=== PATIENT | male | born 1960 | race Caucasian/White ===

== ENCOUNTER → 2023-02-28 11:33 | Outpatient (BNVA) | payer BC, SELFPAY | PROVIDERS: Visit Provider Nurse Practitioner | DX: M16.11 Unilateral primary osteoarthritis, right hip (principal); M25.551 Pain in right hip | CPT/HCPCS: 73502 ==

== ENCOUNTER 2023-05-18 11:45 | Outpatient (CLI) | payer BC, MEDICAID, SELFPAY ==
--- NOTE | 2023-05-18 12:00 | CT_ITS ---
WS: [id number] CT RIGHT HIP NONCONTRAST DEJAN TECHNIQUE: Noncontrast CT of the RIGHT hip to include the RIGHT knee CLINICAL INFORMATION: RIGHT TOTAL HIP ARTHROPLASTY COMPARISON: None. DLP: 899.[address] scans at [facility] use at least one of these dose optimization techniques: automated e xposure control; mA and/or kV adjustment per patient size (includes targeted exams where dose is matc hed to clinical indication); or iterative reconstruction. FINDINGS: Advanced degenerative arthritis RIGHT hip with loss of the joint space and uqqc-[id number] articulation. Hypertrophic changes along the joint line. Subchondral sclerosis in the femoral head and acetabulum. Normal pubic rami. Moderate degenerative narrowing LEFT hip. Moderate facet arthropathy lower lumbar spine. Ankylosis RIGHT sacroiliac joint. Tiny fat-containing umbilical hernia. IMPRESSION: Images obtained for preoperative purposes.
== END 2023-05-18 11:46 | disposition home or self-care (01) ==
LOC: RAD 11:46
PROVIDERS: PCP Nurse Practitioner; Visit Provider Student in an Organized Health Care Education/Training Program
DX: Z01.812 Encounter for preprocedural laboratory examination (principal); Z01.818 Encounter for other preprocedural examination; M25.551 Pain in right hip; Z96.641 Presence of right artificial hip joint
CPT/HCPCS: 73700; 80053; 81003; 85025

== ENCOUNTER → 2023-05-25 10:18 | Outpatient (BNVA) | payer BC, MEDICAID, SELFPAY | PROVIDERS: PCP Nurse Practitioner; Visit Provider Family Medicine | DX: Z01.818 Encounter for other preprocedural examination (principal) | CPT/HCPCS: 81003; 87086 ==

== ENCOUNTER 2023-05-28 15:29 | Observation (INO) | payer BC, MEDICAID, SELFPAY ==
[2023-05-28] VITALS (16 sets, daily range): BP systolic 95–133; BP diastolic 61–81; PULSE 62–76; RESP 14–18; TEMP 36.2–37; O2SAT 93–98; BMI 38.3; BMI 38.6
[2023-05-28] MEDS: lactated ringers 500 ML IV (09:22)
[2023-05-28] MEDS: acetaminophen 1,000 MG/100 ML PIGGYBACK 400 MG IV ×2 (09:27→16:41)
--- NOTE | 2023-05-28 09:27 | PC.NURSE ---
gudino cath inserted and specimen obtained and sent to lab at 0918
[2023-05-28] MEDS: ketorolac 30 mg/mL INJ IVP (09:32)
[2023-05-28] MEDS: scopolamine 1.5 Patch 1 PATCH TRANSDERMA (09:33)
[2023-05-28 09:38] LABS: Add Urine Microscopic? NO; Charge for UA Resulting for Rev
[2023-05-28 09:39] LABS: Basophils % 0.6 %; Eosinophils # 0.2 10^3/uL (0.0-0.8); Eosinophils % 3.8 %; Hematocrit 44.8 % (37-53); Lymphocytes # 2.4 10^3/uL (0.8-4.8); Lymphocytes % 37.8 %; Mean Corpuscular HGB Conc 32.6 g/dL (30-55); Mean Corpuscular Hemoglobin 29.4 pg (27-33); Mean Corpuscular Volume 90.1 fl (82-101); Mean Platelet Volume 11.4 fL (7.4-10.4); Monocytes # 0.7 10^3/uL (0.2-0.9); Monocytes % 10.8 %; Neutrophils # 2.99 10^3/uL (1.8-7.7); Neutrophils % 46.8 %; Nucleated Red Blood Cells % 0 %; Platelet Count 188 10^3/cmm (157-399); Red Blood Count 4.97 10^6/uL (3.85-5.65); Red Cell Distribution Width 13.3 % (12.1-15.1); White Blood Count 6.38 10^3/uL (3.29-11.43)
[2023-05-28 09:51] LABS: Bilirubin Urine Neg (Negative); Blood Urine Neg (Negative); Glucose Urine UA Norm (Normal); Ketones Urine Negative (Negative); Leukocyte Esterase Urine Negative (Negative); Nitrate Urine Negative (Negative); Protein Urine Neg (Negative); Sulfosalicylic Acid Urine Negative (Negative); Urine Appearance Clear (CLEAR); Urine Color Yellow (Yellow); Urobilinogen Urine Neg (Negative); pH Urine 5 (5-7)
[2023-05-28 10:04] LABS: Anion Gap 17.4 (5-19); Blood Urea Nitrogen 17 mg/dL (8-23); Carbon Dioxide 24 mmol/L (22-29); Chloride 106 mmol/L (98-107); Creatinine Clr Calc Pharmacy 145.2538; Glomerular Filtration Rate 113.9 mL/min (90-130); Glucose 116 mg/dL (65-115); Osmolality Calculated 299 mOsm/kg (285-295); Potassium 4.4 mmol/L (3.5-5.1); Sodium 143 mmol/L (136-145)
--- NOTE | 2023-05-28 10:29 | ANES.PREANE2 ---
Pre-Anesthetic Assessment Height/Weight: Height 1.8 m Weight 124.738 kg Temp Pulse Resp BP Pulse Ox O2 Del Method 97.2 F L 68 18 133/81 97 Room Air 05/28/23 08:51 05/28/23 08:51 05/28/23 08:51 05/28/23 09:33 05/28/23 08:51 05/28/23 09:28 Operation Date: 05/28/23 10:20 Proposed Procedures p Right Jay Robot Total Hip Arthroplasty(Right) - Lamonte Dunn, DO Was Beta Maria Fernanda taken within 24 hours: N/A Was Clonidine taken within 24 hours: N/A Last intake: Intake Last Liquid Date 05/27/23 Last Liquid Time 21:30 Last Solid Date 05/27/23 Last Solid Time 20:30 Social No alcohol and No tobacco Quite/sober years ago Exam alert and oriented x 3 Airway Submandibular: within normal limits Cervical ROM: within normal limits Mallampati: Class II Dentition: chipped and loose History/ROS No significant history except as noted and No significant complaints Metabolic Morbid Obesity Anesthetic Plan ASA status: 2 Anesthesia: General and Regional (specify below) Other: Spinal + MAC; GETA backup Risk of > 500 ml blood loss (7ml/kg in children): Yes, adequate IV access and fluids planned Medications/Allergies Home Medications Medication Instructions Recorded Confirmed Last Taken Type ascorbic acid (vitamin C) 1,000 mg 1 g PO DAILY 05/15/23 05/25/23 05/27/23 History capsule onjjvpa-makmtofmq-uxulhb-zinc 1 tab PO DAILY 05/15/23 05/25/23 05/27/23 History tablet potassium gluconate 600 mg (99 mg) 600 mg PO DAILY 05/15/23 05/25/23 05/27/23 History tablet sulfamethoxazole 800 1 tab PO BID 5 days #10 tabs 05/21/23 05/25/23 05/26/23 Rx mg-trimethoprim 160 mg tablet (Bactrim DS) Allergies Allergy/AdvReac Type Severity Reaction Status Date / Time No Known Allergies Allergy Verified 05/25/23 09:13 [facility] Anesthesia Social History Smoking and tobacco/nicotine status: former use of tobacco/nicotine Alcohol intake: never Data Anesthesia 05/28/23 09:21 05/28/23 09:21 Short CBC 05/28/23 Range/Units 09:21 WBC 6.38 (3.29-11.43) 10^3/uL Hgb 14.60 (11.27-16.99) g/dL Hct 44.8 (37-53) % MCV 90.1 (82-101) fl Plt Count 188 (157-399) 10^3/cmm Neut % (Auto) 46.8 % Neut # (Auto) 2.99 (1.8-7.7) 10^3/uL BMP 05/28/23 09:21 Sodium 143 Potassium 4.4 Chloride 106 Carbon Dioxide 24 BUN 17 Creatinine 0.7 Glucose 116 H Calcium 9.0 Urine 05/28/23 Range/Units 09:15 Urine Color Yellow (Yellow) Urine Appearance Clear (CLEAR) Urine pH 5 (5-7) Ur Specific [place] 1.020 (1.005-1.030) Urine Protein Neg (Negative) Urine Glucose (UA) Norm (Normal) Urine Ketones Negative (Negative) Urine Nitrate Negative (Negative) Urine Bilirubin Neg (Negative) Ur Leukocyte Esterase Negative (Negative) Cardiac Studies: No Data to Display
[2023-05-28] MEDS: sodium chloride 0.9% 1,000 ML 30 ML IV (10:30)
--- NOTE | 2023-05-28 11:18 | W.PM.OPSUD ---
Surgery/Procedure H&P Update DATE OF PROCEDURE: May 28, 2023 DATE H&P PERFORMED: 05/15/23 H&P UPDATE INFORMATION: I have reviewed H&P completed within last 30 days, I have examined patient prior to procedure and No changes to prior documentation CHANGES TO PREVIOUS DOCUMENTATION: UA checked this morning and clear. Received clearance note by dentist he is doing well no issues at this time. Ready to proceed with right total hip arthroplasty Jay robotic assisted posterior approach. PREOP DIAGNOSIS: Right hip DJD PRIMARY INDICATION FOR PROCEDURE: Right hip degenerative joint disease PLANNED PROCEDURE: Operation Date: 05/28/23 10:20 Proposed Procedures p Right Jay Robot Total Hip Arthroplasty(Right) - Lamonte Dunn DO
[2023-05-28] MEDS: ceFAZolin 2,000 MG in sodium chloride 0.9% (plus) 50 ML 100 MG IV ×2 (11:33→20:36)
[2023-05-28] MEDS: ceFAZolin 1,000 MG in sodium chloride 0.9% (plus) 50 ML 100 MG IV (12:05)
[2023-05-28] MEDS: tranexamic acid 1,000 mg/10mL SDV 1000 MG IV (12:10)
[2023-05-28] MEDS: vancomycin 1,000 MG SDV 2000 MG XX (14:03)
--- NOTE | 2023-05-28 14:53 | XRR_ITS ---
PROCEDURE INFORMATION: Exam: XR Right Hip Exam date and time: 05/28/2023 3:05 PM Age: 62 years old Clinical indication: Device placement; Other: Joe; Prior surgery; Surgery date: Post-operative (0-2 days); Additional info: Post op joe, do in pacu TECHNIQUE: Imaging protocol: Radiologic exam of the right hip. Views: 1 view hip with pelvis when performed. COMPARISON: CT hip RT [facility] [id number] 05/18/2023 12:00 PM FINDINGS: Bones/joints: Total hip replacement. Anatomic alignment. Bone and metal are intact. There is a small amount of periarticular gas. No acute fracture. Soft tissues: Unremarkable. XR/XR hip RT 2-3V wo/w pel* [id number] IMPRESSION: Normal following replacement.
--- NOTE | 2023-05-28 14:54 | PM.OP ---
Operative Report Date of procedure: May 28, 2023 Surgeon: Lamonte Dunn DO Cast Iron Dipper: John Dunn PA-C: PA was necessary for assistance in this case with leg positioning, reduction , retraction and protection of neurovascular structures as well as assistance in implantation wound closure and dressing application. Procedure: Preop Diagnosis Right hip degenerative joint disease Post-op diagnosis: Right hip degenerative joint disease Procedure done: Right total hip arthroplasty?robotic assisted Jay posterior approach Implants: Chayo total hip arthroplasty implants 56 mm cluster hole acetabular shell 6.5 mm x (25mm) acetabular screw Alpha code F MDM cementless metal liner Femoral stem size #7 132 degree neck angle Alpha code MDM +8 mm head Surgeon: Lamonte Dunn DO Estimated blood loss: 200 mL IV fluids: 1200 mL Urine output: 450 mL Complications: None Condition: stable Disposition: floor Brief History: Patient's been seen and worked up by myself in the outpatient setting and findings consistent with Right hip degenerative joint disease. He has failed conservative treatment this is causing him severe pain and inability to perform his job from a daily aspect. We talked about his treatment options as far as nonoperative and operative intervention. he ultimately through shared decision-making would like to proceed with a Right total hip arthroplasty. we detailed out his risk benefits complications alternatives to surgical and nonsurgical treatment options. Understanding his risk for surgery he elects to proceed with Right total hip arthroplasty robotic assisted Jay utilizing a posterior approach. All questions answered. He elects proceed with surgery today. Procedure: Patient was seen evaluate in preoperative holding area.? Consent was reviewed and signed with patient.? Correct extremity was then marked.? Patient seen evaluate by anesthesia department once cleared for surgery pt was taken back to the operative suite.? Patient underwent spinal anesthesia per the anesthesia department.? This point time pt was then placed on the operative suite and table.? Pt was then placed in lateral decubitus patient worked with the Right hip up.? Patient was secured in the lateral decubitus position with pegboard. All bony prominences well-padded he was properly secured to the bed.? At this point time the Right lower extremity was then prepped and draped in standard orthopedic fashion with care not to drape out the iliac wing for pelvic array placement.? Final timeout performed.? Patient received appropriate preoperative antibiotics. Started off with establishment of my pelvic array pins.? A small longitudinal incision was made directly over the iliac wing.? Sharp scalpel excision through skin and subcutaneous tissue directly onto bone.? Next I then loaded my pelvic pin.? This was then drilled through the iliac wing corridor with excellent fixation.? Next I then loaded the guide which was placed directly onto bone and then subsequently placed 2 more pins to secure fixation.? Next the pelvic array was then sent had excellent visualization with the Jay robot and was secured. EKG pad was placed on the distal lateral aspect of the femur and sterile aseptic technique and use as my distal reference point. Next I proceeded with my standard posterior approach.? Sharp scalpel through skin and subcutaneous tissue this was centered over the greater trochanter.? I then utilized a Bullard elevator over the gluteus tony fascia.? Next the fascia was then split longitudinally with bipolar electrocautery.? Next a Charnley retractor was then placed.? All bone was then placed into the abductors.? A standard full-thickness release of the piriformis and the short external rotators along with the capsule to grade 1 full thick sleeve for later repair was then placed straight down to the lesser trochanter.? Lesser trochanter was then subsequently identified.? Prior to dislocating the hip we then placed our greater trochanter femur checkpoint.? We marked our appropriate checkpoint for referencing on pelvic array.? At this point in time we then established both of our checkpoints as well as referencing for leg lengths I utilized the EKG pad as my distal reference point. The legs were marked and traced to have appropriate position on the drapes to allow for accurate reading.? Preoperative leg lengths set. Once this was then established I then proceeded with dislocation of the femoral head.? At this point Hohmann's were then placed superiorly and inferiorly along the femoral neck..? The sciatic nerve was protected throughout this case.? At this point time I then utilized the Jay robot and referencing point to reference different aspects along the femoral head and neck for my appropriate neck length.? These were referenced on the inferior mid substance as well as up into the superior shoulder of the femoral neck.? This marked my oscillating saw was used to make my femoral neck cut.? Femoral head was then removed. Next the leg was placed in appropriate position and my anterior and posterior acetabular retractors then placed.? Next I excised the labrum and then remove the pulvinar.? I did do a small release of the inferior capsule which was severely taut to allow for easier placement of my reamers as well as reduction.? Acetabulum was thoroughly irrigated. At this point in time keeping my retractors in place I subsequently loaded up the Dataupia robot for my acetabular reaming.?? Next I then set my 56 reamer under the Dataupia robot and subsequently held this with appropriate preplanned preop planned version of 40 degrees of abduction angle as well as 20 degrees of anteversion.? This preoperative plan was then subsequently made to accommodate for ranges of motion of impingement that was assessed preoperatively utilizing the Dataupia robotic software technology. The small adjustments of abduction and anteversion accommodated no anterior hip impingement with the hip flexed at 90 degrees. I then subsequently reamed this to the appropriate depth with 56mm reamer.? We opened up the acetabular shell clusterhole of the 56 mm Chayo this was then loaded onto my impacting system and then I subsequently impacted this to appropriate depth.? This was then removed from the robot and I used the Jay probe at the center to confirm on the CT scan that this was down on bone which it was.? Next I then drilled and placed 1 acetabular screws with excellent fixation these were drilled and measured to be 25mm this was in the posterior superior aspect of the acetabulum had excellent bite and fixation.? The cup was solid and had excellent press-fit fixation. next, opened the alpha code F MDM cementless liner then subsequently placed in appropriate position and impacted into place.? I then placed a sponge into the acetabulum to protect the polyethylene while my femur preparation was performed.? At this point time I then utilized a small rongeur to clear off the shoulder of the femoral neck to clear out the soft tissue envelope for my box osteotome.? Next box osteotome was used a canal finder was placed as well as a lateral lysing rattail rasp.? Once I was appropriately lateralized I then sequentially broached up to a size 7 femoral stem.? This was impacted to appropriate depth and flushed with my femoral neck cut.? This point I loaded a standard size neck and subsequently reduced the hip.? At this point in time the hip was taken through range of motion before evaluating with the robot on leg lengths.? Patient appeared to have room to increase on leg lengths clinically.? The hip was taken through range of motion and had excellent stability with hip flexion and internal rotation with no evidence of instability had an slightly increased shuck.? This point time utilized the Jay probe from our femur checkpoint down to her distal checkpoint. Satisfied with this trial implants, at this point I dislocated the hip and then called for my final implants with excellent stability in all planes.? Opened up a size 7 femoral Accolade II stem.? My trials were then removed and then subsequently impacted my Accolade II stem to the same level.? This point in time I trialed up to a +8 mm neck length which helped match with Jay robotic assistance had appropriate leg lengths comparative to the contralateral hip and this was confirmed clinically as well as had excellent stability I felt as though this was best combination with leg lengths being equal as well as with stability and elected for the final +8 mm MDM femoral head. Final MDM femoral head component was then opened and the trunnion was dried and this was impacted with excellent fixation and the hip was subsequently reduced.? We measured our final leg lengths which were appropriate patient had excellent stability in all ranges of motion.? This point time a robotic pins and checkpoints were removed.? I remove the femur checkpoint as well as my pelvic array and iliac wing pins.? Appropriate counts were then made.? This point time thoroughly irrigated the wound bed with pulse lavage.? Vancomycin powder was then sprinkled into the wound bed.? I then performed a standard capsular and external rotator repair utilizing #5 Ethibond and this was tied and repaired through bone tunnels hip, sciatic nerve was protected throughout this portion of the case. Was then kept in abduction external rotation and subsequently closed the fascial layer with Ethibond suture as well as running strata fix suture.? I then closed the deep subcutaneous layer as well as superficial subcutaneous layer with running strata fix suture as well as 3-0strata fix for skin.? Prineo glue dressing was then placed over the skin.? I then irrigated the pelvic array pin site.? There is were then closed with interrupted 0, 2-0 Vicryl suture and Monocryl as well as Prineo glue for the skin.? Incisions were then covered with britany and Silverlon dressing.? Patient was awakened from anesthesia and taken to PACU in stable condition Disposition: Patient taken to PACU in stable condition.? Patient will receive appropriate discharge instructions as well as DVT prophylaxis and pain medication.? Patient will be admitted to the floor for observation should be evaluated by the internal medicine team for medical management.? Patient received appropriate DVT prophylaxis as well as pain medication PT/OT weightbearing as tolerated Right lower extremity with posterior hip precautions, Postoperative Abx and TXA.? We will follow-up with patient in the office in 2 weeks.? Patient understands agrees with current plan.? All questions answered.
--- NOTE | 2023-05-28 15:01 | P.BOP_ITS ---
Date of Procedure: [May] Surgeon: [Dr. Dunn DO] Souvenir And Novelty Maker(s): [John Dunn PA-C] Procedure(s) performed: [Right hip total arthroplasty posterior approach with Jay robotic assist] Findings of the procedure(s): [Right hip degenerative joint disease] Estimated blood loss: [200 mL] Specimen(s) removed: [Femoral head] Post-operative diagnosis: [Right hip degenerative joint disease]
--- NOTE | 2023-05-28 15:03 | PM.PACU ---
PACU note Narrative: Patient is a 62-year-old male just underwent a right hip total arthroplasty. Pt transferred to PACU in stable condition. Dressing is dry. pt is awake and alert. pt can wiggle toes . Distal pulses are palpable toes are warm and well-perfused. Cap refill is normal and under 2 seconds. Sensation to toes intact. unable to assess further motor or sensory function due to residual anesthesia block. Pain is controlled. Exam: awake Disposition: admitted
[2023-05-28] MEDS: ketorolac 30 mg/mL INJ 15 MG IVP (15:55)
[2023-05-28] MEDS: lactated ringers 1,000 ML 100 ML IV (15:56)
[2023-05-28] MEDS: tranexamic acid 1,000 MG/100 ML PREMIX 600 MG IV (15:56)
[2023-05-28] MEDS: chlorhexidine gluconate 0.12% Btl 473 mL 30 ML MUCOUS MEM ×2 (16:40→20:41)
[2023-05-28] MEDS: oxyCODONE 5 mg IR Tab/Cap PO (17:48)
[2023-05-28] MEDS: mupirocin oint 22 gm 1 APPLIC NASAL (17:49)
[2023-05-28] MEDS: calcium carb-vit d 600mg/400unit 1 Tablet 1 EACH PO (17:49)
[2023-05-28] MEDS: iron polysaccharide complex 150 mg Capsule PO (17:49)
[2023-05-28] MEDS: sennosides-docusate Tablet 2 TAB PO (17:49)
--- NOTE | 2023-05-28 19:38 | P.CONIM_ITS ---
Providers/Reason For Consult 2 Consulting Physician/Specialty*: Hospitalist Reason for Consult*: Postoperative management Attending Physician: Lamonte Dunn DO Primary Care Provider: ERIN Haddad History of Present Illness History of Present Illness Davi Queen is a 62 year old male status post total hip arthroplasty hospitalist team was consulted for postoperative management. Patient is hemodynamically stable No active discomfort other than mild pain Requiring IV fluids Doing well on room air Patient is stating that he was taking Bactrim which was roughly 2 months ago for his dental infection he has been referred to oromaxillary surgeon r Review of Systems 2 Const: Denies: fever(s) Eyes: Denies: change in vision ENMT: Denies: throat pain Card: Denies: chest pain Medications/Allergies Home Medications Medication Instructions Recorded Confirmed Last Taken Type ascorbic acid (vitamin C) 1,000 mg 1 g PO DAILY 05/15/23 05/25/23 05/27/23 History capsule hbmmliv-rtxmkbqbp-yclbkl-zinc 1 tab PO DAILY 05/15/23 05/25/23 05/27/23 History tablet potassium gluconate 600 mg (99 mg) 600 mg PO DAILY 05/15/23 05/25/23 05/27/23 History tablet sulfamethoxazole 800 1 tab PO BID 5 days #10 tabs 05/21/23 05/25/23 05/26/23 Rx mg-trimethoprim 160 mg tablet (Bactrim DS) oxycodone 5 mg tablet 5 mg PO Q6H PRN pain postop 7 days 05/29/23 Unknown Rx #28 tabs Allergies Allergy/AdvReac Type Severity Reaction Status Date / Time No Known Allergies Allergy Verified 05/25/23 09:13 Current Medications Generic Name Dose Route Start Last Admin Trade Name Freq PRN Reason Stop Dose Admin Calcium Carbonate 1 each 05/28/23 18:00 05/28/23 17:49 Calcium Carb-Vit D 600mg/400unit 1 Tablet PO 1 each BID MANNIE Administration Chlorhexidine Gluconate 30 ml 05/28/23 17:00 05/28/23 16:40 Chlorhexidine Gluconate 0.12% Btl 473 Ml MUCOUS MEM 30 ml QID MANNIE Administration Lactated Ringer's 1,000 mls @ 100 mls/hr 05/28/23 15:29 05/28/23 15:56 Lactated Ringers IV 100 mls/hr .Q10H MANNIE Administration Acetaminophen 1,000 mg in 100 mls @ 400 mls/hr 05/28/23 17:30 05/28/23 17:19 Acetaminophen IV 05/29/23 09:44 Infused Q8H MANNIE Infusion Ketorolac Tromethamine 15 mg 05/28/23 15:29 05/28/23 15:55 Ketorolac 30 Mg/Ml Inj IVP 15 mg Q6H PRN Administration MODERATE TO SEVERE PAIN Mupirocin 1 applic 05/28/23 18:00 05/28/23 17:49 Mupirocin Oint 22 Gm NASAL 06/02/23 17:59 1 applic BID MANNIE Administration Oxycodone HCl 5 mg 05/28/23 15:29 05/28/23 17:48 Oxycodone 5 Mg Ir Tab/Cap PO 5 mg Q4H PRN Administration MODERATE PAIN Polysaccharide Iron Complex 150 mg 05/28/23 18:00 05/28/23 17:49 Iron Polysaccharide Complex 150 Mg Capsule PO 150 mg BIDWM MANNIE Administration Senna/Docusate Sodium 2 tab 05/28/23 18:00 05/28/23 17:49 Sennosides-Docusate Tablet PO 2 tab BID MANNIE Administration PFSH Acute 2 PFSH: Social History Smoking and tobacco/nicotine status: former use of tobacco/nicotine Alcohol intake: never Vitals/I&O/Wt Last Vital Signs Temp 97.7 F 05/28/23 18:30 Pulse 74 05/28/23 18:30 Resp 18 05/28/23 18:30 BP 116/78 05/28/23 18:30 Pulse Ox 94 05/28/23 18:30 O2 Del Method Room Air 05/28/23 18:30 O2 Flow Rate 6 05/28/23 15:02 05/28/23 05/28/23 05/28/23 06:59 14:59 22:59 Intake Total 1900 / 1900 610 / 2510 Output Total 650 / 650 Balance 1250 / 1250 610 / 1860 Weight last 48 hrs Weight 125.645 kg Weight 124.738 kg Physical Exam 2 Narrative: Awake and alert GCS [address] No active soaking of blood Pleasant cooperative nonfocal neuroexam Doing well on room Pleasant cooperative Urinary Catheter Management: Rushing: Cath Placed During This Visit: yes Urinary Catheter Date of Insertion: 05/28/23 Urinary Catheter Time of Insertion: 11:50 Data 05/29/23 05:39 05/29/23 05:39 A&P Assessment and plan (1) Degenerative joint disease of right hip: Plan Postoperative medical management Patient is hemodynamically stable Normotensive Afebrile No signs of UTI No need to continue to biotics for UTI Physical therapy in the morning Plan to discharge by orthopedics in the morning Full code Opioids along senna S Regular diet Consult Attestations 2 Medical Necessity Statement: Possible discharge tomorrow Diagnoses Degenerative joint disease of right hip M16.11
--- NOTE | 2023-05-28 19:56 | ANE.PACU2 ---
Inpatient post-anesthesia follow up: Airway intact: Yes Vital signs: Temperature 97.7 F Pulse Rate 74 Respiratory Rate 18 Blood Pressure 116/78 Pulse Oximetry 94 Oxygen Delivery Me thod Room Air Oxygen Flow Rate 6 Fraction of Inspir ed Oxygen Hydration adequate: Yes Nausea and vomiting: No Pain level: 2 Mental status: Baseline
[2023-05-29 00:37] VITALS: BP 116/71; PULSE 70; RESP 17; O2SAT 93
[2023-05-29] MEDS: acetaminophen 1,000 MG/100 ML PIGGYBACK 400 MG IV ×2 (01:39→09:29)
[2023-05-29] MEDS: lactated ringers 1,000 ML 100 ML IV (01:45)
[2023-05-29] MEDS: ceFAZolin 2,000 MG in sodium chloride 0.9% (plus) 50 ML 100 MG IV ×2 (03:48→12:57)
[2023-05-29 06:05] LABS: Basophils % 0.3 %; Eosinophils % 0.3 %; Lymphocytes % 16.9 %; Mean Corpuscular HGB Conc 31.6 g/dL (30-55); Mean Corpuscular Hemoglobin 29.3 pg (27-33); Mean Corpuscular Volume 92.7 fl (82-101); Mean Platelet Volume 11.1 fL (7.4-10.4); Monocytes # 1.2 10^3/uL (0.2-0.9); Monocytes % 9.8 %; Neutrophils # 8.55 10^3/uL (1.8-7.7); Neutrophils % 72.4 %; Nucleated Red Blood Cells % 0 %; Platelet Count 170 10^3/cmm (157-399); Red Cell Distribution Width 13.4 % (12.1-15.1); White Blood Count 11.81 10^3/uL (3.29-11.43)
[2023-05-29 06:19] VITALS: RESP 20
[2023-05-29] MEDS: oxyCODONE 5 mg IR Tab/Cap PO ×2 (06:19→12:55)
[2023-05-29 06:31] LABS: Anion Gap 14.4 (5-19); Blood Urea Nitrogen 13 mg/dL (8-23); Calcium 8.9 mg/dL (8.5-10.5); Carbon Dioxide 26 mmol/L (22-29); Chloride 103 mmol/L (98-107); Creatinine Clr Calc Pharmacy 151.3521; Glomerular Filtration Rate 113.9 mL/min (90-130); Glucose 120 mg/dL (65-115); Osmolality Calculated 289 mOsm/kg (285-295); Potassium 4.4 mmol/L (3.5-5.1); Sodium 139 mmol/L (136-145)
[2023-05-29 07:31] VITALS: BP 123/72; PULSE 67; RESP 16; TEMP 36.7; O2SAT 95
--- NOTE | 2023-05-29 08:12 | P.PN_ITS ---
<Statement entered by Lamonte Dunn DO - 05/30/23 22:01> Patient seen and examined as well. Agree with PAs assessment and plan. Plan to discharge later today as long as cleared by medicine. Has gotten up and worked with therapy. Understands posterior hip precautions. Will receive appropriate discharge instructions as well as pain medication DVT prophylaxis. Will follow- up in the orthopedic office in 2 weeks. Patient understands and agrees with current plan. Questions answered. Lamonte Dunn DO Subjective 2 Subjective: Patient is a 62-year-old male that is 1 day postop right total hip arthroplasty. No acute events overnight. Pain is controlled. Physical therapy was going to start some exercises with patient this morning after I left the room. Denies any fevers, nausea or vomiting. He is able to keep all his food and fluids down. Vitals/I&O/Wt Last Vital Signs Temp 98.0 F 05/29/23 07:31 Pulse 67 05/29/23 07:31 Resp 16 05/29/23 07:31 BP 123/72 05/29/23 07:31 Pulse Ox 95 05/29/23 07:31 O2 Del Method Room Air 05/29/23 07:31 O2 Flow Rate 6 05/28/23 15:02 05/28/23 05/29/23 05/29/23 22:59 06:59 14:59 Intake Total 1020 / 2920 1270 / 4190 Output Total 700 / 1350 Balance 1020 / 2270 570 / 2840 Weight last 48 hrs Weight 297 lb Weight 277 lb Weight 275 lb Physical Exam 2 Const: COMMON NORMALS: no acute distress and alert Resp: COMMON NORMALS: normal respiratory effort and No retractions Cardio: COMMON NORMALS: Peripheral pulses 2+ throughout PERIPHERAL PULSES: Peripheral pulses 2+ throughout Extremity: NARRATIVE EXTREMITY EXAM: Right lower extremity?dressing is dry and intact. Skin and soft tissue around dressing is soft and no hematoma. Sensation to lower extremity intact. Patient is able to perform plantarflexion dorsiflexion of foot. Pedal pulse 2+. Cap refill normal under 2 seconds. Toes are warm and well-perfused. Neuro: SENSORIUM/ORIENTATION: Yes alert Skin: GENERAL SKIN EXAM: dry skin Urinary Catheter Management: Rushing: Cath Placed During This Visit: yes, but has since been removed by the nurse Reason for Continuing Indwelling Catheter: Decision to DC Catheter Urinary Catheter Date of Insertion: 05/28/23 Urinary Catheter Time of Insertion: 11:50 Date Urinary Catheter Removed: 05/29/23 Time Urinary Catheter Discontinued: 06:15 Data 05/29/23 05:39 05/29/23 05:39 A&P Assessment and plan (1) Degenerative joint disease of right hip: (2) S/P total hip arthroplasty: Plan Plan: -Imaging and Labs reviewed -Hospitalist on board for medical management. -DVT prophylaxis- elquis 2.5 mg BID -Weight-bear as tolerated on right leg -Pain control -PT Pt is doing well 1 day postop Right total hip arthroplasty. Pt is cleared for discharge home today. Attestations 2 Medical Necessity Statement*: Ongoing care for right total hip arthroplasty Coding Level of Care Code Acute Code for domenic Burns Diagnoses Degenerative joint disease of right hip M16.11 S/P total hip arthroplasty Z96.649
[2023-05-29] MEDS: multivitamin therapeutic Tablet 1 TAB PO (09:28)
[2023-05-29] MEDS: calcium carb-vit d 600mg/400unit 1 Tablet 1 EACH PO (09:28)
[2023-05-29] MEDS: sennosides-docusate Tablet 2 TAB PO (09:28)
[2023-05-29] MEDS: apixaban 5 mg Tablet 2.5 MG PO (09:28)
[2023-05-29] MEDS: iron polysaccharide complex 150 mg Capsule PO (09:28)
[2023-05-29] MEDS: mupirocin oint 22 gm 1 APPLIC NASAL (09:29)
[2023-05-29] MEDS: chlorhexidine gluconate 0.12% Btl 473 mL 30 ML MUCOUS MEM (09:30)
--- NOTE | 2023-05-29 09:52 | PC.CHAP ---
Pastoral Care Encounter/Spiritual Assessment Type of Contact [] Declined surgery scheduling coordinator visit [] Patient/Family/Request visit [] Outpatient visit [] Follow-up visit [] Physician referral [] Code/Alert [x] Routine visit [] Staff referral [] Actively dying [] Patient sleeping [] Family support [] [] Out of room [] Palliative care [] [] Receiving care in room [] Pre-surgical visit [] Trauma [] Long length of stay [] ICU visit [] Other: Relational/Emotional Strength [x] Patient feels connected with others/family/visitors/staff [] Distress [] Loneliness/isolation [] Abandonment Spirituality of Patient [x] Person of Gabrielle [] Attends Religious of their Gabrielle [x] Believes in Prayer [] Reads Bible or Voodoo materials [] There are Spiritual issues to be addressed [place] Observer Interventions [x] Prayer [x] Active listening [] Non-anxious presence [x] Spiritual/emotional support [] Crisis/trauma care [] Spiritual counseling [] Bereavement support [] Provided bereavement packet [] Provided Bible/devotional materials [] Provided toy/stuffed animal, coloring book to patient or family member [] Provided Communion [] Anointing/Perkins [] Salvation [x] Completed spiritual assessment [] Other: Impact on Illness or Injury [] Angry [] Fearful [] Anxious [] Often cries [] Exhaustion [] Unable to work [] Unable to attend religious [] Unable to walk/stand [] Unable to read [] Unable to drive [] Unable to eat/drink [] Unable to sleep [] Unable to be with family [] Patient intubated [] Other: Summary Time spent with patient 5 min
--- NOTE | 2023-05-29 10:22 | P.DS_ITS ---
Discharge Providers Date of Admission: 05/28/23 15:29 Date of Discharge: May 29, 2023 Attending Provider at Admission: Lamonte Dunn DO Attending Provider at Discharge: Lamonte Dunn DO Consults: Hospitalist consulted for medical management Primary Care Provider: ERIN Haddad Diagnoses at Discharge Discharge Diagnosis (1) Degenerative joint disease of right hip: Status: Resolved (2) S/P total hip arthroplasty: Status: Acute Reason for Visit Reason for Visit: M16.11 Brief History: Status post right total hip arthroplasty Jay robotic assisted Hospital Course Hospital Course Patient was brought to the hospital through the preoperative holding area with plan for right total hip arthroplasty for [right ] hip dengerative joint disease. Once cleared by anesthesia for surgery subsequently was taken back to the operative suite underwent anesthesia per the anesthesia department and then underwent [ right] total hip arthroplasty with Jay robotic assistance posterior approach without any complications. Patient was then subsequently taken back to PACU in stable condition recovering well. Once recovered, patient was then subsequently admitted to the floor postoperatively. Internal medicine was consulted for medical management assistance. Patient weightbearing as tolerated to the right lower extremity, posterior hip precautions. PT/OT. Pain control. DVT prophylaxis. Postoperative antibiotics and TXA. dressing was change as needed. Internal medicine was on board and appreciate their medical management and assistance. Pt was determined on postoperative day [1 ] the patient was stable for discharge from orthopedic as well as internal medicine standpoint. Patient's labs were monitored daily. Patient will receive appropriate pain medication as well as DVT prophylaxis postoperatively. Appropriate discharge instructions as well. Patient was then discharged in stable condition. Patient will discharge home. Pt will follow-up with Orthopedics in the office in 2 weeks. Patient understands and agrees with current plan. All questions answered. Understands there is any issues or concerns and contact the office. Physical Exam Const: COMMON NORMALS: no acute distress and alert Resp: COMMON NORMALS: normal respiratory effort and No retractions Cardio: COMMON NORMALS: Peripheral pulses 2+ throughout PERIPHERAL PULSES: Peripheral pulses 2+ throughout Extremity: NARRATIVE EXTREMITY EXAM: Right lower extremity?dressing is dry and intact. Britany intact with minimal saturation, skin and soft tissue around dressing is soft and no hematoma. Compartments soft and compressible sensation to lower extremity intact. Patient is able to perform plantarflexion dorsiflexion of foot. Pedal pulse 2+. Cap refill normal under 2 seconds. Toes are warm and well-perfused. Neuro: SENSORIUM/ORIENTATION: Yes alert Skin: GENERAL SKIN EXAM: dry skin Urinary Catheter Management: Rushing: Cath Placed During This Visit: yes, but has since been removed by the nurse Reason for Continuing Indwelling Catheter: Decision to DC Catheter Urinary Catheter Date of Insertion: 05/28/23 Urinary Catheter Time of Insertion: 11:50 Date Urinary Catheter Removed: 05/29/23 Time Urinary Catheter Discontinued: 06:15 Discharge Data Studies Completed and Pending Completed Studies During Hospitalization Category Date Time Status XR hip RT 2-3V wo/w pel* [id number] Routine Exams 05/28/23 14:53 Completed Pending at discharge Category Date Time Status Basic Metabolic Panel AM LABS Lab 05/30/23 04:00 Ordered Basic Metabolic Panel AM LABS Lab 05/31/23 04:00 Ordered Complete Blood Count w/Auto AM LABS Lab 05/30/23 04:00 Ordered Complete Blood Count w/Auto AM LABS Lab 05/31/23 04:00 Ordered Radiology Impressions Hip/Pelvis X-Ray 05/28/23 14:53 IMPRESSION: Normal following replacement. Laboratory Results WBC 11.81 10^3/uL (3.29-11.43) H 05/29/23 05:39 RBC 4.10 10^6/uL (3.85-5.65) 05/29/23 05:39 Hgb 12.00 g/dL (11.27-16.99) 05/29/23 05:39 Hct 38.0 % (37-53) 05/29/23 05:39 MCV 92.7 fl (82-101) 05/29/23 05:39 MCH 29.3 pg (27-33) 05/29/23 05:39 MCHC 31.6 g/dL (30-55) 05/29/23 05:39 RDW 13.4 % (12.1-15.1) 05/29/23 05:39 Plt Count 170 10^3/cmm (157-399) 05/29/23 05:39 MPV 11.1 fL (7.4-10.4) H 05/29/23 05:39 Neut % (Auto) 72.4 % 05/29/23 05:39 Lymph % (Auto) 16.9 % 05/29/23 05:39 [place] % (Auto) 9.8 % 05/29/23 05:39 Eos % (Auto) 0.3 % 05/29/23 05:39 Baso % (Auto) 0.3 % 05/29/23 05:39 Neut # (Auto) 8.55 10^3/uL (1.8-7.7) H 05/29/23 05:39 Lymph # (Auto) 2.0 10^3/uL (0.8-4.8) 05/29/23 05:39 [place] # (Auto) 1.2 10^3/uL (0.2-0.9) H 05/29/23 05:39 Eos # (Auto) 0.0 10^3/uL (0.0-0.8) 05/29/23 05:39 Baso # (Auto) 0.0 10^3/uL (0.0-0.1) 05/29/23 05:39 Nucleated RBC % (auto) 0 % 05/29/23 05:39 Nucleated RBCs # 0.0 /100WBC 05/29/23 05:39 Sodium 139 mmol/L (136-145) 05/29/23 05:39 Potassium 4.4 mmol/L (3.5-5.1) 05/29/23 05:39 Chloride 103 mmol/L (98-107) 05/29/23 05:39 Carbon Dioxide 26 mmol/L (22-29) 05/29/23 05:39 Anion Gap 14.4 (5-19) 05/29/23 05:39 BUN 13 mg/dL (8-23) 05/29/23 05:39 Creatinine 0.7 mg/dL (0.7-1.2) 05/29/23 05:39 GFR Calculation 113.9 mL/min (90-130) 05/29/23 05:39 Glucose 120 mg/dL (65-115) H 05/29/23 05:39 Calculated Osmolality 289 mOsm/kg (285-295) 05/29/23 05:39 Calcium 8.9 mg/dL (8.5-10.5) 05/29/23 05:39 Urine Color Yellow (Yellow) 05/28/23 09:15 Urine Appearance Clear (CLEAR) 05/28/23 09:15 Urine pH 5 (5-7) 05/28/23 09:15 Ur Specific [place] 1.020 (1.005-1.030) 05/28/23 09:15 Urine Protein Neg (Negative) 05/28/23 09:15 Urine Glucose (UA) Norm (Normal) 05/28/23 09:15 Urine Ketones Negative (Negative) 05/28/23 09:15 Urine Blood Neg (Negative) 05/28/23 09:15 Urine Nitrate Negative (Negative) 05/28/23 09:15 Urine Bilirubin Neg (Negative) 05/28/23 09:15 Prot Sulfosalicylic Acd Negative (Negative) 05/28/23 09:15 Urine Urobilinogen Neg mg/dL (Negative) 05/28/23 09:15 Ur Leukocyte Esterase Negative (Negative) 05/28/23 09:15 Blood Type O Positive 05/28/23 09:21 Rho(D) Type Rh positive 05/28/23 09:21 Antibody Screen Negative 05/28/23 09:21 Vitals Last Vital Signs Temp 98.0 F 05/29/23 07:31 Pulse 67 05/29/23 07:31 Resp 16 05/29/23 07:31 BP 123/72 05/29/23 07:31 Pulse Ox 95 05/29/23 07:31 O2 Del Method Room Air 05/29/23 07:31 O2 Flow Rate 6 05/28/23 15:02 Discharge Plan Discharge Patient Disposition: Home Condition: Stable Prescriptions: New Eliquis 2.5 mg tablet 2.5 mg PO BID 35 Days Qty: 70 0RF cephalexin 500 mg capsule 500 mg PO TID 10 Days Qty: 30 0RF oxycodone 5 mg tablet 5 mg PO Q6H PRN (Reason: pain postop) 7 Days Qty: 28 0RF Continued ascorbic acid (vitamin C) 1,000 mg capsule 1 g PO DAILY potassium gluconate 600 mg (99 mg) tablet 600 mg PO DAILY [id number] Tablet 1 tab PO DAILY sulfamethoxazole-trimethoprim [Bactrim DS] 800-160 mg tablet 1 tab PO BID 5 Days Qty: 10 0RF Discharge Orders: Discharge Order (Routine); Ordered 05/29/23 Ordered By: Lamonte Dunn Referrals: Lamonte Dunn DO [Physician] - 06/12/23 9:15 am Discharge Diet: Advance as tolerated Discharge Activity: Limit activity as instructed Patient Instructions: Cephalexin (By mouth), Oxycodone, Rapid Release (By mouth) (ETH-Oxydose, Oxy IR,..., Ondansetron (By mouth), Apixaban (By mouth), Precautions after Total Joint Replacement Surgery (GEN), Total Hip Replacement (GEN), Joint Replacement Stoplight, Opioid Safety Activity Restrictions/Additional Instructions: Orthopedic discharge instructions: Patient should keep dressings clean dry and intact Okay to shower over dressings if they do become wet these should be removed and new dressings applied Keep incisions clean dry and intact, leave britany bandage dressings on in place for 7 days after that May remove dressing. Recommend sponge bath Weight-bear as tolerated to operative lower extremity Posterior hip precautions as instructed by physical therapy Ice as needed for pain and swelling Take pain medication as prescribed Take antinausea medication as needed Supplement with Citracal vitamin D for bone health and healing Take Colace as needed for constipation Take blood thinner as prescribed (Eliquis) Follow-up in the orthopedic office in 2 weeks Contact the office for any questions or concerns Discharge Attestations Time Spent in Discharge Care*: less than 30 min Quality Metrics Clinical Quality Measures [ No reported AMI, CVA or VTE this stay] Coding Level of Care Code Acute Code for Chg Fwd Diagnoses Degenerative joint disease of right hip M16.11 S/P total hip arthroplasty Z96.649
[2023-05-29 11:19] VITALS: BP 121/69; PULSE 78; RESP 15; TEMP 36.6; O2SAT 92
[2023-05-29 12:55] VITALS: RESP 17; O2SAT 92
[2023-05-29 16:09] VITALS: RESP 17; O2SAT 92
== END 2023-05-29 14:14 | disposition home or self-care (01) ==
LOC: MEDSURG 05-29 06:18
PROVIDERS: Physician Assistant; Admitting Provider Student in an Organized Health Care Education/Training Program; PCP Nurse Practitioner; Visit Provider Student in an Organized Health Care Education/Training Program
PROC: 8E0Y0CZ Robotic Assisted Procedure of Lower Extremity, Open Approach (ICD-10-PCS; CPT 27130; principal; 2023-05-28 09:50)
DX: M16.11 Unilateral primary osteoarthritis, right hip (principal); E66.01 Morbid (severe) obesity due to excess calories; Z68.41 Body mass index [BMI] 40.0-44.9, adult; Z87.891 Personal history of nicotine dependence
CPT/HCPCS: 27130; 36415; 51702; 73502; 80048; 81003; 85025; 86850; 86900; 97110; 97116; 97161; 97165; C1713; C1776; G0378; J0131; J0690; J1100; J1885; J2250; J2371; J2405; J2704; J3370; J3490; J7030; J7120

== ENCOUNTER → 2023-06-12 08:47 | Outpatient (BNVA) | payer BC, MEDICAID, SELFPAY | PROVIDERS: PCP Nurse Practitioner; Visit Provider Student in an Organized Health Care Education/Training Program | DX: Z96.641 Presence of right artificial hip joint | CPT/HCPCS: 73502 ==

== ENCOUNTER → 2023-07-24 09:53 | Outpatient (BNVA) | payer BC, MEDICAID, SELFPAY | PROVIDERS: PCP Nurse Practitioner; Visit Provider Student in an Organized Health Care Education/Training Program | DX: Z96.641 Presence of right artificial hip joint (principal) | CPT/HCPCS: 73502 ==

== ENCOUNTER → 2023-10-18 14:35 | Outpatient (BNVA) | payer BC, MEDICAID, SELFPAY | PROVIDERS: PCP Nurse Practitioner; Visit Provider Physician Assistant | DX: Z96.641 Presence of right artificial hip joint (principal) | CPT/HCPCS: 73502 ==

== ENCOUNTER → 2024-05-20 09:05 | Outpatient (BNVA) | payer BC, MEDICAID, SELFPAY | PROVIDERS: PCP Nurse Practitioner; Visit Provider Physician Assistant | DX: Z96.641 Presence of right artificial hip joint (principal) | CPT/HCPCS: 73502 ==

== ENCOUNTER 2024-12-16 16:21 | Outpatient (CLI) | payer MEDICARE, MEDICAID, SELFPAY ==
--- NOTE | 2024-12-16 16:32 | CT_ITS ---
WS: [id number] LDCT LUNG CANCER SCREENING HISTORY: PERSONAL HISTORY OF NICOTINE DEPENDENCE TECHNIQUE: Axial imaging performed from the apices to 1 cm below the costophrenic angles. Coronal and sagittal reformats are submitted with axial MIP series. All CT scans at [facility] use at least one of these dose optimization techniques: automated exposure control; mA and/or kV adjustment per patient size (includes targeted exams where dose is matched to clinical indication); or iterative reconstruction. DLP: 177.41 mGy.cm DIvol: Mean CTDIvol: 4.70 (mGy) COMPARISON: None available. Diagnostic quality: Satisfactory Lungs: Decreased lung volumes due to poor inspiration. Numerous scattered calcified granulomata. Compressive atelectasis at the lung bases due to poor inspiration. No mass or nodule. No endobronchial lesions. No pneumonia. Heart: Normal size heart with no pericardial effusion.. Other findings: Mild atherosclerosis aorta. Normal size aorta and pulmonary artery. No adenopathy. Hepatic steatosis. No adrenal mass. Moderate thoracic spondylosis. CT/CT lung screening [id number] IMPRESSION: LUNG-RADS: 2-Benign Appearance or Behavior FOLLOW UP: 12 Month: Continue annual screening with LDCT OTHER FINDINGS (S MODIFIER): None.
== END 2024-12-16 16:22 | disposition home or self-care (01) ==
LOC: RAD 16:22
PROVIDERS: PCP Nurse Practitioner; Visit Provider Nurse Practitioner
DX: Z12.2 Encounter for screening for malignant neoplasm of respiratory organs (principal); Z87.891 Personal history of nicotine dependence; J98.11 Atelectasis; R91.8 Other nonspecific abnormal finding of lung field; K76.0 Fatty (change of) liver, not elsewhere classified; M47.814 Spondylosis without myelopathy or radiculopathy, thoracic region
CPT/HCPCS: 71271